=== PATIENT | male | born 1945 | race Caucasian/White ===

== ENCOUNTER 2023-07-22 11:22 | Outpatient (CLI) | payer MEDICARE, OTHER | END 2023-07-22 11:23 | disposition critical access hospital (66) | LOC: EMS 11:22 | DX: R55 Syncope and collapse (principal); I95.9 Hypotension, unspecified | CPT/HCPCS: A0425; A0427 ==

== ENCOUNTER 2023-07-22 11:40 | Emergency (ER) | payer MEDICARE, OTHER ==
[2023-07-22 11:53] VITALS: BP 96/70; O2SAT 99
[2023-07-22] MEDS ORDERED: SODIUM CHLORIDE 0.9% 1,000 ML IV STA (12:19)
--- NOTE | 2023-07-22 12:20 | ED Physician Documentation ---
PD HPI SYNCOPE - Stated complaint Stated Complaint: SYNCOPE - Chief complaint Chief Complaint: Neuro - History obtained from History obtained from: Patient, Family, EMS - History of Present Illness Witnessed: Witnessed Timing - onset: Today Duration: Seconds Preceding symptoms: Light headed, Generalized weakness Associated symptoms: Seizure Contributing factors: Decreased PO intake, Exertion Injury occurred: None Treatment TRAUMA COORDINATOR: Fluids Similar symptoms before: Has not had sx before Recently seen: Not recently seen - Additional information Additional information: 77-year-old Lemuel [place] in [place] and his grandchildren. He was expecting to check out of the hotel today his got into town and he took a nap and when he woke up when his got back he felt that he was too weak to just stand up from a bed and he rolled onto the floor onto his knees. He had a brief syncopal episode. This was witnessed by the patient's . He did not otherwise injure himself. He has a prior history of atrial fibrillation, he is on Eliquis and he has an AICD in place. Review of Systems Constitutional: denies: Fever, Chills Eyes: denies: Decreased vision Ears: denies: Ear pain, Drainage/discharge Nose: denies: Rhinorrhea / runny nose, Congestion Throat: denies: Sore throat Cardiac: denies: Chest pain / pressure, Palpitations Respiratory: denies: Dyspnea, Cough GI: reports: Abdominal Pain (resolves after urination has been ongoing for some time. (months)). denies: Nausea, Vomiting, Constipation, Diarrhea : reports: Frequency. denies: Dysuria, Unable to Void, Incontinent, Discharge Skin: denies: Rash Musculoskeletal: denies: Neck pain, Back pain, Extremity pain Neurologic: reports: Generalized weakness. denies: Focal weakness, Numbness PD PAST MEDICAL HISTORY - Present Medications Home Medications: Ambulatory Orders Medication Instructions Recorded Confirmed Apixaban [Eliquis] 5 mg PO BID 07/22/23 07/22/23 - Allergies Allergies/Adverse Reactions: Allergies Allergy/AdvReac Type Severity Reaction Status Date / Time amoxicillin [From Augmentin] Allergy Rash Verified 07/22/23 11:52 clavulanic acid Allergy Rash Verified 07/22/23 11:52 [From Augmentin] Iodinated Contrast Media Allergy Anaphylaxis Verified 07/22/23 11:52 lidocaine Allergy Rash Verified 07/22/23 11:52 antibiotics Allergy Rash Uncoded 07/22/23 11:52 PD ED PE NORMAL - Vitals Vital signs reviewed: Yes (Normal) - General General: Alert and oriented X 3, No acute distress, Well developed/nourished - HEENT HEENT: Atraumatic, PERRL, EOMI - Neck Neck: Supple, no meningeal sign, No bony TTP - Cardiac Cardiac: No murmur, Other (Irregularly irregular rate and rhythm) - Respiratory Respiratory: No respiratory distress, Clear bilaterally - Abdomen Abdomen: Normal bowel sounds, Soft, Other (The bladder is palpable below the umbilicus with minimal tenderness) - Back Back: No CVA TTP, No spinal TTP - Derm Derm: Normal color, Warm and dry, No rash - Extremities Extremities: No deformity, No edema - Neuro Neuro: Alert and oriented X 3, manager ems 2-12 intact, No motor deficit, No sensory deficit, Normal speech Eye Opening: Spontaneous Motor: Obeys Commands Verbal: Oriented GCS Score: 15 - Psych Psych: Normal mood, Normal affect Results - Vitals Vitals: Vital Signs - 24 hr 07/22/23 11:48 Temperature 36.4 C L Heart Rate 68 Respiratory 14 Rate Blood Pressure 96/70 O2 Saturation 99 Oxygen O2 Source Room air - EKG (time done) 1224 EKG releavant findings:: EKG personally interpreted by author of this note. Relevant findings are: Rate: Rate (enter#) (79) Rhythm: Atrial flutter [place]: LAD QRS: LVH Ischemia: Normal ST segments Compare to prior EKG: Old EKG unavailable Computer interpretation: Agree with computer - Labs Labs: Laboratory Tests 07/22/23 07/22/23 07/22/23 12:27 12:27 13:25 WBC 6.7 RBC 3.66 L Hgb 10.7 L Hct 32.7 L MCV 89.3 MCH 29.2 MCHC 32.7 RDW 15.0 Plt Count 261 MPV 9.3 Neut # (Auto) 5.5 Lymph # (Auto) 0.4 L [place] # (Auto) 0.6 Eos # (Auto) 0.3 Baso # (Auto) 0.0 Absolute Nucleated RBC 0.00 Nucleated RBC % 0.0 Sodium 130 L Potassium 4.6 H Chloride 101 Carbon Dioxide 22 Anion Gap 7.0 BUN 65 H Creatinine 3.5 H Estimated GFR (MDRD) 17 L Glucose 137 H Calcium 8.8 Total Bilirubin 0.4 AST 20 ALT 23 Alkaline Phosphatase 143 H Total Protein 5.6 L Albumin 3.6 Globulin 2.0 L Albumin/Globulin Ratio 1.8 Lipase 72 Urine Color YELLOW Urine Clarity CLEAR Urine pH 5.5 Ur Specific [place] 1.010 Urine Protein NEGATIVE Urine Glucose (UA) NEGATIVE Urine Ketones NEGATIVE Urine Occult Blood NEGATIVE Urine Nitrite NEGATIVE Urine Bilirubin NEGATIVE Urine Urobilinogen 0.2 (NORMAL) Ur Leukocyte Esterase NEGATIVE Ur Microscopic Review NOT INDICATED Urine Culture Comments NOT INDICATED Procedures - Bedside sono Bedside sono by EMP: With use of POCUS I attempted to interrogate the inferior vena cava there was too much gas in the exam and I was unable to adequately visualize the IVC. I was able to visualize a full bladder and directed the radiologic technician to use the bladder scanner. PD Medical Decision Making - ED course Complexity details: reviewed results, re-evaluated patient, considered differential, d/w patient, d/w family Reviewed Lab Results: We reviewed a complete blood count showing a normal white blood cell count and depressed hemoglobin and hematocrit with the values at 10.7 and 32.7 respectively we have no priors for comparison. Platelet count is normal at 261,000 chemistries are remarkable for a low sodium at 130 elevated potassium at 4.6 the kidney function shows an elevated BUN of 65 and a creatinine of 3.5. Glucose is mildly elevated at 137. The liver functions show an elevated alkaline phosphatase at 143. No comparisons for this patient. I interpreted these as the following: The patient does have an anemia and has normal indices. No specific explanation is afforded by the hemogram itself. The chemistries show abnormality to the BUN and creatinine consistent with what we have now diagnosed with the patient as urinary retention. He does show signs of obstruction. The expectation with treatment is resolution of the abnormal values. No specific explanation of the mildly elevated alkaline phosphotase is obvious. ED course: Lemuel Moeller is a 77-year-old male with a history of atrial fibrillation with an AICD in place who is on Eliquis and has had a syncopal episode this morning. He did not have an injury associated with the syncope. On evaluation in the emergency department we found the patient to have significant urinary retention. He has evidence of obstruction in over 1700 mls of urine in his bladder. Ortez catheter was placed and urine was drained with some relief to the patient.The patient has plans to travel back to [place] today and I have recommended the patient see the urologist in the coming week. He has a after school coordinator who will be able to make a referral. Departure - Departure Disposition: 01 Home, Self Care Clinical Impression: Urinary retention Syncope Qualifiers: Syncope type: vasovagal syncope Qualified Code(s): R55 - Syncope and collapse Condition: Stable Instructions: ED Retention Urinary Male, ED Syncope Vasovagal Follow-Up: Your, after school coordinator [Other] Comments: Lemuel today it looks like you have acute urinary retention with evidence of obstruction. We have placed a Ortez catheter and this will need to be in place for a week to 10 days. A follow-up with urology is indicated. Contact your after school coordinator when you return home and get a referral to see the urologist. Today there was no evidence of infection in the urine.
[2023-07-22 12:35] LABS: BASOPHILS % (AUTO) 0.6 %; EOSINOPHILS # (AUTO) 0.3 10^3/uL (0.0-0.7); EOSINOPHILS % (AUTO) 3.9 %; HCT - HEMATOCRIT 32.7 % (42.0-52.0); HGB - HEMOGLOBIN 10.7 g/dL (14.0-18.0); LYMPHOCYTES # (AUTO) 0.4 10^3/uL (1.5-3.5); LYMPHOCYTES % (AUTO) 5.6 %; MEAN CORPUSCULAR HEMOGLOBIN 29.2 pg (27.0-31.0); MEAN CORPUSCULAR HGB CONC 32.7 g/dL (32.0-36.0); MEAN CORPUSCULAR VOLUME 89.3 fL (80.0-94.0); MEAN PLATELET VOLUME 9.3 fL (7.4-11.4); MONOCYTES # (AUTO) 0.6 10^3/uL (0.0-1.0); MONOCYTES % (AUTO) 8.3 %; NEUTROPHILS # (AUTO) 5.5 10^3/uL (1.5-6.6); NEUTROPHILS % (AUTO) 81.2 %; PLT - PLATELET COUNT 261 10^3/uL (130-450); RED BLOOD COUNT 3.66 10^6/uL (4.70-6.10); WHITE BLOOD COUNT 6.7 x10^3/uL (4.8-10.8)
[2023-07-22 12:48] LABS: ALBUMIN 3.6 g/dL (3.2-5.5); ALBUMIN/GLOBULIN RATIO 1.8 (1.0-2.2); BILIRUBIN,TOTAL 0.4 mg/dL (0.2-1.0); CALCIUM 8.8 mg/dL (8.5-10.3); CREATININE 3.5 mg/dL (0.6-1.3); POTASSIUM 4.6 mmol/L (3.5-4.5); TOTAL PROTEIN 5.6 g/dL (6.4-8.9)
[2023-07-22 13:46] LABS: BILIRUBIN,URINE NEGATIVE (NEGATIVE); GLUCOSE, URINE (UA) NEGATIVE (NEGATIVE); KETONES,URINE (UA) NEGATIVE (NEGATIVE); LEUKOCYTE ESTERASE, URINE NEGATIVE (NEGATIVE); NITRITE,URINE NEGATIVE (NEGATIVE); OCCULT BLOOD,URINE NEGATIVE (NEGATIVE); PH,URINE 5.5 PH (5.0-7.5); PROTEIN,URINE NEGATIVE (NEGATIVE); UROBILINOGEN,URINE 0.2 (NORMAL) E.U./dL (NORMAL)
[2023-07-22 13:49] LABS: CLARITY,URINE CLEAR (CLEAR)
== END 2023-07-22 15:06 | disposition home or self-care (01) ==
LOC: ED 11:40
DX: R55 Syncope and collapse (principal); R33.9 Retention of urine, unspecified; I48.91 Unspecified atrial fibrillation; Z95.810 Presence of automatic (implantable) cardiac defibrillator; Z79.01 Long term (current) use of anticoagulants
CPT/HCPCS: 36415; 51702; 80053; 81001; 81003; 83690; 85025; 87086; 93005; 99283